=== PATIENT | male | born 1965 | race African-American/Black ===

== ENCOUNTER 2024-11-06 20:02 | Inpatient (IN) | payer OTHER ==
[~2024-11-06] VITALS: Ht 175.3 cm; Wt 114.8 kg
[2024-11-06 20:10] VITALS: RESP 25
[2024-11-06 20:45] LABS: BASOPHILS % 1.2 % (0.0-2.0); EOSINOPHILS % 1.5 % (0.0-5.0); HEMATOCRIT. 47.6 % (42.0-52.0); HEMOGLOBIN. 15.4 g/dL (14.0-18.0); LYMPHOCYTES % 43.0 % (20.0-50.0); MEAN PLATELET VOLUME 10.6 fl (7.4-10.4); MONOCYTES % 7.9 % (2.0-8.0); NEUTROPHILS % 46.4 % (40.0-76.0); PLATELET 246 x1000/uL (130-400); RED BLOOD CELL COUNT 5.04 mill/uL (4.7-6.1); RED CELL DISTRIBUTION WIDTH 14.2 % (11.6-14.6)
[2024-11-06] MEDS: CEFTRIAXONE 1GM/50ML 50 ML IV ONE (20:47)
[2024-11-06] MEDS: SODIUM CHLORIDE 0.9% 500 ML IV ONE (20:52)
[2024-11-06 20:54] LABS: INR 1.0
[2024-11-06 20:58] LABS: CREATININE 1.8 mg/dL (0.6-1.3); UREA NITROGEN BLOOD 20 mg/dL (9-23)
[2024-11-06 21:00] LABS: ASPARTATE AMINOTRANSFERASE 40 IU/L (<34); BILIRUBIN DIRECT 0.1 mg/dL (<=3.0); BILIRUBIN TOTAL 0.5 mg/dL (0.1-1.0); PROTEIN TOTAL 7.8 g/dL (6.0-8.3)
[2024-11-06] MEDS: AZITHROMYCIN 500MG/250ML 250 ML IV SCH (21:19)
[2024-11-06] MEDS: KCL 10MEQ/50ML PREMIX 50 ML IV SCH (21:45)
[2024-11-06 22:15] LABS: CLARITY URINE CLEAR (CLEAR); COLOR URINE YELLOW (YELLOW); GLUCOSE URINE NEGATIVE (NEGATIVE); KETONES URINE NEGATIVE (NEGATIVE); LEUKOCYTE ESTERASE URINE NEGATIVE (NEGATIVE); NITRITE URINE NEGATIVE (NEGATIVE); OCCULT BLOOD URINE 1+ (NEGATIVE); PH URINE 6.0 (4.5-8.0); PROTEIN URINE 4+ (NEGATIVE); SPECIFIC GRAVITY URINE 1.011 (1.005-1.030); UROBILINOGEN URINE 0.2 E.U./dL (0.2-1.0)
[2024-11-06] MEDS ORDERED: AZITHROMYCIN 500MG/250ML 250 ML IV SCH (22:15)
[2024-11-06] MEDS ORDERED: ONDANSETRON HCL 4MG/2ML INJ IV PRN (22:15)
[2024-11-06] MEDS ORDERED: IPRATROPIUM/ALBUTEROL 0.5-3(2.5)MG/3ML NEB HHN PRN (22:15)
[2024-11-06] MEDS ORDERED: ACETAMINOPHEN 325MG TABLET PO PRN (22:15)
[2024-11-06] MEDS: SODIUM CHLORIDE 0.9% 1,000 ML IV SCH (22:15)
[2024-11-06 22:30] LABS: BACTERIA URINE 1+; SQUAMOUS EPITHELIAL CELL URINE 1+ /lpf (RARE/1+); WBC URINE 0-2 /hpf (0-2)
[2024-11-06] MEDS: AMLODIPINE 10MG TABLET PO SCH (22:30)
[2024-11-06 22:58] LABS: TROPONIN I HIGH SENSITIVITY 112 ng/L (3.0-53)
[2024-11-06 23:40] VITALS: RESP 36
[2024-11-07] VITALS (17 sets, daily range): BP systolic 131–185; BP diastolic 88–133; PULSE 79–104; RESP 20–30; TEMP 35.8–37.2; O2SAT 25–100
[2024-11-07] MEDS ORDERED: FUROSEMIDE 40MG/4ML VIAL IVP SCH
[2024-11-07] MEDS: CLONIDINE 0.1MG TABLET PO PRN (01:18)
[2024-11-07] MEDS: KCL 10MEQ/50ML PREMIX 50 ML IV SCH (02:51)
[2024-11-07 05:41] LABS: BASOPHILS % 0.5 % (0.0-2.0); EOSINOPHILS % 0.0 % (0.0-5.0); HEMATOCRIT. 45.0 % (42.0-52.0); HEMOGLOBIN. 15.0 g/dL (14.0-18.0); LYMPHOCYTES % 12.1 % (20.0-50.0); MEAN PLATELET VOLUME 10.2 fl (7.4-10.4); MONOCYTES % 6.4 % (2.0-8.0); NEUTROPHILS % 81.0 % (40.0-76.0); PLATELET 213 x1000/uL (130-400); RED BLOOD CELL COUNT 4.91 mill/uL (4.7-6.1); RED CELL DISTRIBUTION WIDTH 14.2 % (11.6-14.6)
[2024-11-07 06:00] LABS: CREATININE 1.4 mg/dL (0.6-1.3)
[2024-11-07 06:01] LABS: LDL CHOLESTEROL 158 mg/dL (5-100); TRIGLYCERIDE 73 mg/dL (0-150); UREA NITROGEN BLOOD 19 mg/dL (9-23)
[2024-11-07 06:03] LABS: T4 FREE 0.97 ng/dL (0.89-1.76)
[2024-11-07] MEDS ORDERED: METHYLPREDNISOLONE SOD SUCC 40MG/ML (ACT-O-VIAL) IV SCH (09:00)
[2024-11-07] MEDS: IPRATROPIUM/ALBUTEROL 0.5-3(2.5)MG/3ML NEB HHN SCH (09:20)
[2024-11-07 09:51] LABS: PHOSPHORUS 3.5 mg/dL (2.5-4.9)
[2024-11-07 10:21] LABS: BG BASE EXCESS -2.8 mmol/L (-2.0-3.0); BG CARBOXYHEMOGLOBIN 1.2 % (0.5-1.5); BG DEOXYHEMOGLOBIN 8.1 % (0.0-5.0); BG FLOW(L/min) 6.00 L/min; BG FRACTION INSPIRED OXYGEN 44; BG HCO3 ACT 20.5 mmol/L (21.0-28.0); BG METHEMOGLOBIN 0.3 % (0.5-1.5); BG OXYGEN SATURATION 91.8 % (94.0-98.0); BG OXYHEMOGLOBIN 90.4 % (94.0-98.0); BG PCO2 32.2 mmHg (35.0-48.0); BG PH 7.422 (7.350-7.450); BG PO2 61.3 mmHg (83.0-108.0); BG SAMPLE SITE RIGHT RADIAL; BG TOTAL HEMOGLOBIN 15.6 g/dL (13.5-17.5); BG VENT MODE NASAL CANNULA
[2024-11-07] MEDS: ENOXAPARIN 30MG/0.3ML SYR SUBCUT SCH (10:25)
[2024-11-07] MEDS: ACETAMINOPHEN 325MG TABLET PO PRN (10:25)
[2024-11-07] MEDS: GUAIFENESIN 600MG ER TABLET PO SCH (10:26)
[2024-11-07] MEDS: PANTOPRAZOLE 40MG DR TABLET PO SCH (10:26)
[2024-11-07] MEDS: METHYLPREDNISOLONE SOD SUCC 40MG/ML (ACT-O-VIAL) IV SCH (10:27)
[2024-11-07 11:25] LABS: *AMPHETAMINES SCREEN URINE NEGATIVE (NEGATIVE)
[2024-11-07 11:26] LABS: *BARBITURATES SCREEN URINE NEGATIVE (NEGATIVE); *BENZODIAZEPINES SCREEN URINE NEGATIVE (NEGATIVE); *COCAINE SCREEN URINE NEGATIVE (NEGATIVE); METHADONE URINE SCREEN NEGATIVE (NEGATIVE); OPIATES URINE SCREEN NEGATIVE (NEGATIVE)
[2024-11-07 11:27] LABS: CANNABINOID URINE SCREEN PRESUMPTIVE POSITIVE (NEGATIVE); ECSTASY MDMA SCREEN URINE NEGATIVE (NEGATIVE); PHENCYCLIDINE URINE SCREEN NEGATIVE (NEGATIVE)
[2024-11-07] MEDS: DOXYCYCLINE 100MG/100ML 100 ML IV SCH (13:50)
[2024-11-07] MEDS ORDERED: AMLODIPINE 10MG TABLET PO SCH (14:15)
[2024-11-07] MEDS: PREDNISONE 20MG TABLET PO SCH (18:17)
[2024-11-07] MEDS: FUROSEMIDE 20MG/2ML VIAL IVP SCH (18:17)
[2024-11-07] MEDS: ATORVASTATIN CALCIUM 40MG TABLET PO SCH (20:50)
[2024-11-07] MEDS: CEFTRIAXONE 1GM/50ML 50 ML IV SCH (20:50)
[2024-11-07] MEDS ORDERED: DOXYCYCLINE HYCLATE 100 MG/VIAL IV SCH (21:00)
[2024-11-07] MEDS ORDERED: AZITHROMYCIN 500MG/250ML 250 ML IV SCH (21:00)
[2024-11-07] MEDS: HYDRALAZINE HCL 25MG TABLET PO SCH (21:36)
[2024-11-08] VITALS: BP 161/96; PULSE 94; RESP 26; TEMP 37.3; O2SAT 96
== END 2024-11-08 00:40 | disposition short-term general hospital (02) | DRG 871 ==
LOC: EDBD 20:02 → ER 20:02 → 5EST 21:23 → EDBEDREQTM 21:34 → EDBEDREQ 21:34 → ENRESERV 22:14 → 5EST 11-07 00:03
PROVIDERS: ADMIT Internal Medicine; ATTEND Internal Medicine
PROC: 5A09357 Assistance with Respiratory Ventilation, Less than 24 Consecutive Hours, Continuous Positive Airway Pressure (ICD-10-PCS; principal; 2024-11-06)
PROC: 5A09357 Assistance with Respiratory Ventilation, Less than 24 Consecutive Hours, Continuous Positive Airway Pressure (ICD-10-PCS; 2024-11-07)
DX: A41.9 Sepsis, unspecified organism (principal); I21.A1 Myocardial infarction type 2; J96.01 Acute respiratory failure with hypoxia; I50.23 Acute on chronic systolic (congestive) heart failure; J18.9 Pneumonia, unspecified organism; N17.9 Acute kidney failure, unspecified; J44.0 Chronic obstructive pulmonary disease with (acute) lower respiratory infection; F12.90 Cannabis use, unspecified, uncomplicated; I11.0 Hypertensive heart disease with heart failure; E66.01 Morbid (severe) obesity due to excess calories; E78.00 Pure hypercholesterolemia, unspecified; E87.6 Hypokalemia; I16.0 Hypertensive urgency; I48.91 Unspecified atrial fibrillation; Z68.37 Body mass index [BMI] 37.0-37.9, adult; Z79.899 Other long term (current) drug therapy
CPT/HCPCS: 36415; 36600; 71045; 80048; 80061; 80076; 80305; 81003; 82375; 82805; 82962; 83036; 83605; 83735; 83880; 84100; 84145; 84439; 84443; 84484; 85025; 93005; 94070; 94640; 94660; 94664; 99291; J0456; J0696; J1650; J1938; J2919; J3480; J3490; J7040; J7512